=== PATIENT | female | born 1980 | race Caucasian/White ===

== ENCOUNTER 2020-12-27 02:17 | Inpatient (IN) | payer OTHER ==
[~2020-12-27] VITALS: Ht 170.2 cm; Wt 109.1 kg
[2020-12-27] MEDS ORDERED: OXYcodone/APAP 5/325MG TABLET ONE (07:51)
[2020-12-27] MEDS ORDERED: FENTANYL PF 100 MCG/2ML IV PRN (08:00)
[2020-12-27] MEDS ORDERED: MISOPROSTOL 25 MCG TABLET VG PRN (08:00)
[2020-12-27] MEDS ORDERED: OXYTOCIN 30U/ 0.9% NaCL 500ML 500 ML IV PRN (08:00)
[2020-12-27] MEDS ORDERED: PENICILLIN GK 5,000,000 UNITS in DEXTROSE 5% 100 ML IVPB ONE (08:00)
[2020-12-27] MEDS ORDERED: D5%-LACTATED RINGERS 1,000 ML IV SCH (08:00)
[2020-12-27] MEDS ORDERED: FENTANYL/BUPIV./NS/PF 250 ML EPIDCONT SCH ×3 (08:00→15:30)
[2020-12-27] MEDS ORDERED: OXYcodone/APAP 5/325MG TABLET PO ONE (08:00)
[2020-12-27] MEDS ORDERED: LACTATED RINGERS 1,000 ML IV SCH ×2 (08:00→15:30)
[2020-12-27] MEDS ORDERED: TERBUTALINE 1 MG/ML, 1ML SQ PRN (08:00)
[2020-12-27] MEDS ORDERED: OXYTOCIN 30U/ 0.9% NaCL 500ML 500 ML IV ONE (08:00)
[2020-12-27] MEDS ORDERED: ONDANSETRON 2MG/ML, 2ML IVPush PRN ×2 (08:00→15:30)
[2020-12-27] MEDS ORDERED: FENTANYL PF 100 MCG/2ML IVPush PRN (08:00)
[2020-12-27] MEDS ORDERED: TERBUTALINE 1 MG/ML, 1ML IVPush PRN (08:00)
[2020-12-27] MEDS ORDERED: EPHEDRINE 50 MG/ML, 1ML IVPush PRN ×2 (08:00→15:30)
[2020-12-27 08:13] LABS: BASOPHILS % (AUTO) 1 % (0-1); EOSINOPHILS % (AUTO) 2 % (1-7); LYMPHOCYTES % (AUTO) 16 % (22-44); MEAN CORPUSCULAR HEMOGLOBIN 28.9 pg (27.0-34.8); MEAN CORPUSCULAR HGB CONC 33.3 g/dL (32.4-35.8); MEAN PLATELET VOLUME 10.2 fL (7.4-10.4); MONOCYTES % (AUTO) 5 % (2-9); NEUTROPHILS % (AUTO) 77 % (42-75); PLATELET COUNT 218 x10^3/uL (130-400); RED BLOOD COUNT 3.72 x10^6/uL (3.82-5.3); RED CELL DISTRIBUTION WIDTH 14.1 % (9.6-15.2)
[2020-12-27] MEDS ORDERED: NEWBORN KIT ONE (10:12)
[2020-12-27] MEDS: PENICILLIN GK 2,500,000 UNITS in DEXTROSE 5% 100 ML IVPB SCH ×2 (12:21→16:23)
[2020-12-27 13:03] LABS: ALBUMIN 2.3 g/dL (3.4-5.0); ANION GAP 4 mmol/L (5-15); CALCIUM 8.8 mg/dL (8.5-10.1); CHLORIDE 106 mmol/L (98-107)
[2020-12-27 13:08] LABS: ALANINE AMINOTRANSFERASE 12 U/L (12-78); ALKALINE PHOSPHATASE 121 U/L (45-117); BILIRUBIN,TOTAL 0.2 mg/dL (0.2-1.0); CREATININE 0.64 mg/dL (0.55-1.02); TOTAL PROTEIN 6.5 g/dL (6.4-8.2)
[2020-12-27] MEDS ORDERED: LACTATED RINGERS 1,000 ML IVBOLUS PRN ×2 (13:30→15:30)
[2020-12-27] MEDS ORDERED: FENTANYL PF 500 MCG, BUPIVACAINE/PF 0.5%, 30ML 62.5 ML in SODIUM CHLORIDE 0.9% 177.5 ML EPIDCONT SCH (14:00)
[2020-12-27] MEDS ORDERED: BUPIVACAINE 0.25% ONE (14:06)
[2020-12-27] MEDS ORDERED: CALCIUM CARBONATE 500 MG TAB.CHEW ONE ×2 (14:40→20:14)
[2020-12-27] MEDS ORDERED: NALOXONE 0.4 MG/ML, 1ML IVPush PRN (15:30)
[2020-12-27] MEDS ORDERED: DIPHENHYDRAMINE 50 MG/ML, 1ML IVPush PRN (15:30)
[2020-12-27 15:37] LABS: CREATININE,URINE RANDOM 59.7 mg/dL
[2020-12-27] MEDS: GUAIFENESIN 200 MG TABLET PO SCH (16:23)
[2020-12-27] MEDS ORDERED: MISOPROSTOL 200 MCG TABLET PR PRN (17:00)
[2020-12-27] MEDS ORDERED: BISACODYL 10 MG SUPP PR PRN (17:00)
[2020-12-27] MEDS ORDERED: ACETAMINOPHEN 325 MG TABLET PO PRN ×2 (17:00)
[2020-12-27] MEDS ORDERED: METOCLOPRAMIDE 5 MG/ML, 2ML IV PRN (17:00)
[2020-12-27] MEDS ORDERED: CARBOPROST TROMETHAMINE 250 MCG/ML, 1ML IM PRN (17:00)
[2020-12-27] MEDS ORDERED: ONDANSETRON 2MG/ML, 2ML IV PRN (17:00)
[2020-12-27] MEDS ORDERED: SIMETHICONE 80 MG CHEW TAB PO PRN (17:00)
[2020-12-27] MEDS ORDERED: OXYTOCIN 30U/ 0.9% NaCL 500ML 500 ML IV SCH (17:00)
[2020-12-27] MEDS ORDERED: METHYLERGONOVINE 0.2 MG/ML IM PRN (17:00)
[2020-12-27] MEDS ORDERED: GLYCERIN ADULT SUPP PR PRN (17:00)
[2020-12-27] MEDS: IBUPROFEN 600 MG TABLET PO PRN (18:00)
[2020-12-27] MEDS: AMOXICILLIN/CLAV 875-125MG TABLET PO SCH (20:17)
[2020-12-28] MEDS: OXYcodone/APAP 5/325MG TABLET PO PRN ×4 (00:16→20:13)
[2020-12-28] MEDS: GUAIFENESIN 200 MG TABLET PO SCH ×5 (00:16→21:19)
[2020-12-28] MEDS: IBUPROFEN 600 MG TABLET PO PRN ×3 (04:18→20:12)
[2020-12-28] MEDS ORDERED: IBUP-1222 PO (09:30)
[2020-12-28] MEDS ORDERED: AMOX1TAB64 PO (09:31)
[2020-12-28] MEDS: DOCUSATE 100 MG CAPSULE PO PRN ×2 (09:46→20:12)
[2020-12-28] MEDS: AMOXICILLIN/CLAV 875-125MG TABLET PO SCH ×2 (09:46→21:18)
[2020-12-28] MEDS: PRENATAL VIT/IRON/FA 1 EACH TABLET PO SCH (09:46)
[2020-12-28 10:00] VITALS: BP 138/73
[2020-12-28 16:30] VITALS: BP 130/69
[2020-12-28 20:00] VITALS: BP 133/86
[2020-12-29] MEDS ORDERED: DIPHENHYDRAMINE 25 MG CAPSULE PO PRN
[2020-12-29] MEDS ORDERED: HYDROCORTISONE CRM 1%, 30GM TP PRN
[2020-12-29] MEDS: OXYcodone/APAP 5/325MG TABLET PO PRN ×3 (00:36→11:09)
[2020-12-29 01:04] LABS: BASOPHILS % (AUTO) 1 % (0-1); EOSINOPHILS % (AUTO) 3 % (1-7); LYMPHOCYTES % (AUTO) 23 % (22-44); MEAN CORPUSCULAR HEMOGLOBIN 29.5 pg (27.0-34.8); MEAN CORPUSCULAR HGB CONC 33.4 g/dL (32.4-35.8); MEAN PLATELET VOLUME 9.8 fL (7.4-10.4); MONOCYTES % (AUTO) 5 % (2-9); NEUTROPHILS % (AUTO) 69 % (42-75); PLATELET COUNT 238 x10^3/uL (130-400); RED BLOOD COUNT 3.68 x10^6/uL (3.82-5.3); RED CELL DISTRIBUTION WIDTH 14.4 % (9.6-15.2)
[2020-12-29] MEDS: IBUPROFEN 600 MG TABLET PO PRN ×2 (06:12→11:09)
[2020-12-29] MEDS: GUAIFENESIN 200 MG TABLET PO SCH ×2 (06:14→11:10)
[2020-12-29 08:05] VITALS: BP 119/81
[2020-12-29] MEDS: AMOXICILLIN/CLAV 875-125MG TABLET PO SCH (09:12)
[2020-12-29] MEDS: PRENATAL VIT/IRON/FA 1 EACH TABLET PO SCH (09:12)
[2020-12-29] MEDS: DOCUSATE 100 MG CAPSULE PO PRN (09:12)
== END 2020-12-29 11:57 | disposition home or self-care (01) | DRG 807 ==
LOC: LDIP 07:38 → 2NE 20:45 → 2NW 12-28 06:37
PROVIDERS: ADMIT Obstetrics & Gynecology; ATTEND Obstetrics & Gynecology
PROC: 0KQM0ZZ Repair Perineum Muscle, Open Approach (ICD-10-PCS; principal; 2020-12-27)
PROC: 10E0XZZ Delivery of Products of Conception, External Approach (ICD-10-PCS; 2020-12-27)
DX: O99.824 Streptococcus B carrier state complicating childbirth (principal); Z37.0 Single live birth; O09.513 Supervision of elderly primigravida, third trimester; K08.89 Other specified disorders of teeth and supporting structures; O14.04 Mild to moderate pre-eclampsia, complicating childbirth; Z20.822 Contact with and (suspected) exposure to COVID-19; O43.193 Other malformation of placenta, third trimester; O70.1 Second degree perineal laceration during delivery; F32.9 Major depressive disorder, single episode, unspecified; Z3A.39 39 weeks gestation of pregnancy; Z88.8 Allergy status to other drugs, medicaments and biological substances; O13.4 Gestational [pregnancy-induced] hypertension without significant proteinuria, complicating childbirth
CPT/HCPCS: 36415; 80053; 82570; 84156; 84550; 85025; 86592; 86850; 86900; 87635; G0378; J2540; J2590; J7120